=== PATIENT | female | born 1985 | race Caucasian/White ===

== ENCOUNTER 2020-02-24 23:51 | Inpatient (IN) | payer BC ==
[~2020-02-24] VITALS: Ht 165.1 cm; Wt 75.9 kg
[2020-02-25] VITALS (40 sets, daily range): BP systolic 111–167; BP diastolic 43–97; PULSE 60–107; TEMP 97.6–98.7
[2020-02-25] MEDS ORDERED: PRENATAL TABLET PO (00:06)
--- NOTE | 2020-02-25 00:15 | NUR ---
G1 at 37.0 weeks gestation to LDR4 with c/o regular, painful contractions. Patient changed into gown, wedged to left side in bed. EFMs explained and applied. Patient reports good movement. FHR 140 bpm and reactive. CTX q2-3 minutes per toco, patient tense and breathing through them. Patient denies leaking of fluid or vaginal bleeding. SVE 3/-2. Plan of care reviewed with patient and spouse.
--- NOTE | 2020-02-25 02:20 | NUR ---
0210- PT BACK TO BED FROM BATHROOM. Cindy BROOKS CRNA IN ROOM FOR EPIDURAL PLACEMENT. PT SITTING UP AT SIDE OF BED FOR EPIDURAL, PT IS TEARFUL AND STATES SHE IS NERVOUS ABOUT THE EPIDURAL. DIFFICULTY TRACING FHT'S AND CONTRACTIONS DUE TO MATERNAL POSITION. THIS NURSE ATTEMPTING TO HOLD US IN PLACE. 0220- TEST DOSE PLACED BY Cindy BROOKS CRNA, PT CONTINUES TO BE TEARFUL BUT TOLERATED EPIDURAL PLACEMENT WELL. 0226- PT REPOSITIONED INTO HIGH FOWLERS FOLLOWING EPIDURAL PLACEMENT.
[2020-02-25 02:21] LABS: COLLECTION METHOD CLEAN CATCH
[2020-02-25 02:24] LABS: BASO # 0.1 (0.0-0.2); BASO % 0.3 % (0.0-2.0); EOS % 0.1 % (0-4.0); GRAN % 84.9 % (42.2-75.2); HEMATOCRIT 38.1 % (37.0-47.0); HEMOGLOBIN 13.4 g/dl (12.5-16.0); LYMPH # 1.8 (1.2-3.4); LYMPH % 10.1 % (20.0-51.0); MEAN CELL VOLUME 93 fl (80.0-100.0); MEAN CORPUSCULAR HEMOGLOBIN 33 pg (27.0-31.0); MEAN CORPUSCULAR HGB CONC 35 g/dl (33.0-37.0); MONO # 0.7 (0.1-0.6); MONO % 3.7 % (1.7-9.3); PLATELET COUNT 163 K/mm3 (130-400); REDCELL DISTRIBUTION WIDTH-CV 12.9 % (11.5-14.5)
[2020-02-25 02:28] LABS: MUCOUS Present /lpf; PH 6 (5-8); SQUAMOUS EPITHELIAL 0-2 /hpf; URINE APPEARANCE Clear; URINE BACTERIA Rare /hpf; URINE BILIRUBIN Negative (NEGATIVE); URINE BLOOD 3+ (NEGATIVE); URINE COLOR Straw; URINE GLUCOSE Negative (NEGATIVE); URINE KETONE Trace (NEGATIVE); URINE LEUKOCYTE ESTERASE Negative (NEGATIVE); URINE NITRATE Negative (NEGATIVE); URINE PROTEIN(semi-quant) Negative (NEGATIVE); URINE UROBILINOGEN Negative (NEGATIVE); URINE WBC 0-2 /hpf
[2020-02-25 02:38] LABS: ALBUMIN 4.3 gm/dL (3.5-5.0); BILIRUBIN,TOTAL 0.3 mg/dL (0.0-1.0); CALCIUM 9.4 mg/dL (8.4-10.2); CREATININE, serum 0.86 (0.52-1.25); POTASSIUM 3.7 mmol/L (3.4-5.0); TOTAL PROTEIN 8.1 gm/dL (6.4-8.2)
--- NOTE | 2020-02-25 09:43 | NUR ---
0840 DR CHRISTOPHER AT BEDSIDE. SVE /+2. LOPEZ REMOVED AT THIS TIME AND WILL SET UP FOR DELIVERY. WILL PUSH WITH EACH CONTRACTION. DR CHRISTOPHER REMAINS AT BEDSIDE.
--- NOTE | 2020-02-25 09:45 | NUR ---
[address] CHRISTOPHER. CORD CLAMPED AND CUT BY AND BABY TO MOMS CHEST SKIN TO SKIN.STRONG CRY NOTED. 0858 PLACENTA DELIVERED AT THIS TIME AND PITOCIN STARTED AT 333 PER PROTOCOL. FUNDUS FIRM AND BLEEDING WNL. SMALL REPAIR DONE BY DR. CHRISTOPHER.
--- NOTE | 2020-02-26 06:35 | NUR ---
REPORT GIVEN FROM OFF GOING RN, CHRISSY Graham. CARE TAKEN OVER BY THIS RN.
[2020-02-26 07:53] VITALS: BP 120/72; PULSE 64; TEMP 98
--- NOTE | 2020-02-26 13:33 | NUR ---
[employer] offered congrats to patient and spouse.
[2020-02-26 16:15] VITALS: BP 127/68; PULSE 76; TEMP 98.5
[2020-02-26] MEDS ORDERED: MOTRIN 800800 MG/TAB PO (18:57)
[2020-02-26 20:15] VITALS: BP 120/65; PULSE 69; TEMP 97.9
[2020-02-27 07:45] VITALS: BP 119/73; PULSE 76; TEMP 97.4
[2020-02-27] MEDS ORDERED: NEWMANS TOP (12:03)
--- NOTE | 2020-02-27 14:24 | NUR ---
1345 ALL PERSONAL BELONGINGS GATHERED FROM PATIENT ROOM. PATIENT LEFT AMBULATORY AND IN NO APPARENT DISTRESS AND ACCOMPANIED BY SPOUSE AND THIS RN.
--- NOTE | 2020-02-27 14:24 | NUR ---
1245 DISCHARGE INSTRUCTIONS REVIEWED WITH PATIENT. PATIENT VERBALIZED UNDERSTANDING. PATIENT WILL NOTIFY THIS RN WHEN READY TO LEAVE.
== END 2020-02-27 13:40 | disposition home or self-care (01) | DRG 807 ==
LOC: LDRO 23:51 → LDR 02-25 01:26 → OB 02-25 12:00
PROVIDERS: ADMIT Obstetrics & Gynecology
PROC: 10E0XZZ Delivery of Products of Conception, External Approach (ICD-10-PCS; principal; 2020-02-25)
PROC: 0HQ9XZZ Repair Perineum Skin, External Approach (ICD-10-PCS; 2020-02-25)
DX: O13.4 Gestational [pregnancy-induced] hypertension without significant proteinuria, complicating childbirth (principal); Z37.0 Single live birth; O99.344 Other mental disorders complicating childbirth; F41.9 Anxiety disorder, unspecified; O99.02 Anemia complicating childbirth; D64.9 Anemia, unspecified; O70.0 First degree perineal laceration during delivery; Z3A.37 37 weeks gestation of pregnancy
CPT/HCPCS: J1200; J2405; J2590; J7120